=== PATIENT | male | born 1970 | race Caucasian/White ===

== ENCOUNTER 2017-08-14 11:41 | Emergency (ER) | payer OTHER, MEDICAID ==
[2017-08-14 11:50] VITALS: RESP 18; TEMP 98.1
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
[2017-08-14] MEDS ORDERED: ALTEPLASE 2 MG VIAL IVP PRN (13:12)
[2017-08-14 13:18] VITALS: BP 120/87; PULSE 89; O2SAT 95
[2017-08-14] MEDS ORDERED: VANCOMYCIN HCL/NORMAL SALINE 250 ML IV ONE (13:30)
[2017-08-14] MEDS ORDERED: ONDANSETRON DISINTEGRATING 4 MG TAB PO PRN (13:40)
[2017-08-14] MEDS ORDERED: ONDANSETRON 4 MG/2 ML VIAL IVP PRN (13:40)
[2017-08-14] MEDS ORDERED: ACETAMINOPHEN 325 MG TAB PO PRN (13:40)
--- NOTE | 2017-08-14 13:57 | ASMTCAGE ---
CAGE Additional Comments Patient is denying any recent drug use. He is opiate dependent on Methadone. pending "legal" blood draw Date Signed: 08/14/2017 01:57 PM Electronically Signed By:Yolanda Watkins RN
[2017-08-15] MEDS ORDERED: ENOXAPARIN 40 MG/0.4 ML SYR SC SCH (09:00)
== END 2017-08-14 14:55 | disposition left against medical advice (07) ==
LOC: EDUNIT# → UNDOADMOB 13:32
DX: L03.113 Cellulitis of right upper limb (principal); L03.114 Cellulitis of left upper limb; F11.90 Opioid use, unspecified, uncomplicated; J45.909 Unspecified asthma, uncomplicated; F17.200 Nicotine dependence, unspecified, uncomplicated
CPT/HCPCS: J1650; J3370

== ENCOUNTER 2018-02-28 02:49 | Emergency (ER) | payer MEDICAID ==
--- NOTE | 2018-02-28 03:28 | EDPHY ---
H & P Stated Complaint: skin parasites- Time Seen by Provider: 02/28/18 02:55 HPI/ROS: HPI The patient presents with concern for parasites on his skin which he has been dealing with for several months. He says that on his face and arms mostly he sees bugs and worms wiggling. He has been treated with permethrin with some improvement in his symptoms. He lately has been using Raid on his open wounds. He feels bugs crawling on him. He does not have any fevers or chills, nausea or vomiting. He has been seen in multiple emergency department for this. He has also gone to [facility] and tried to make appointments with Dermatology and Infectious Disease. He is asking for a biopsy of some sort to be performed for definitive diagnosis as he is convinced he is suffering from parasites and is diagnosed himself with leishmaniasis though he has no travel history. He does have a history of drug use and is currently on methadone. He takes Adderall daily though denies any methamphetamine use. He is not using any injection drugs currently he says. REVIEW OF SYSTEMS 10 systems were reviewed and negative with the exception of the elements mentioned in the history of present illness. PMHx: On methadone Soc Hx: Here with a friend who has not seen any parasites on his body PHYSICAL General Appearance: Alert, no distress Eyes: Pupils equal and round no pallor or injection ENT, Mouth: Mucous membranes moist Respiratory: There are no retractions, lungs are clear to auscultation Cardiovascular: Regular rate and rhythm Gastrointestinal: Abdomen is soft and non-tender, no masses, bowel sounds normal Neurological: A&O, moves all extremities Skin: Warm and dry, open wounds throughout his forearms most prominently, also involving his upper arms and face which are dry, excoriated, scabbed with no surrounding erythema, warmth, edema. Musculoskeletal: Neck is supple non tender Extremities: symmetrical, full range of motion Psychiatric: Patient is oriented X 3, there is no agitation Source: Patient Exam Limitations: No limitations - Personal History Current Tetanus Diphtheria and Acellular Pertussis (TDAP): Yes - Medical/Surgical History Hx Asthma: Yes Hx Chronic Respiratory Disease: No Hx Diabetes: No Hx Cardiac Disease: No Hx Renal Disease: No Hx Cirrhosis: Yes Hx Alcoholism: No Hx HIV/AIDS: No Hx Splenectomy or Spleen Trauma: No Other PMH: HEP C, PAST IV DRUG ABUSE, CLEAN SINCE 11/22/12 - Social History Smoking Status: Current every day smoker Constitutional: Initial Vital Signs Temperature (C) 37 C 02/28/18 02:55 Heart Rate 110 H 02/28/18 02:55 Respiratory Rate 20 02/28/18 02:55 Blood Pressure 154/81 H 02/28/18 02:55 O2 Sat (%) 95 02/28/18 02:55 O2 Delivery Mode Room Air Allergies/Adverse Reactions: No Known Allergies Allergy (Verified 02/28/18 02:58) Home Medications: Medication Instructions Recorded Dextroamphetamine/Amphetamine 20 mg PO DAILY 08/14/17 [Adderall Xr 20 mg Capsule] Methadone HCl 80 mg PO DAILY 08/14/17 clonazePAM [klonoPIN (*)] 1 mg PO BID PRN 08/14/17 Medical Decision Making Differential Diagnosis: 48-year-old male 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 I am not worried currently about bacterial superinfection though he certainly is at risk. He would like a referral to Dermatology and I will provide this for him. I have encouraged him to leave his skin alone, avoid picking, use antibiotic ointment as needed. Departure - Departure Disposition: Home, Routine, Self-Care Clinical Impression: Rash Condition: Good Instructions: Acute Rash (ED) Additional Instructions: I have given you information for our local dermatologists. You may need a referral from her primary care doctor. You should put nothing but water or antibiotic ointment on these wounds. You cannot pick them. Referrals: Roman Delarosa MD [Primary Care Provider] - As per Instructions Kalia Wilder MD [Medical Doctor] - As per Instructions Kia Ross MD [Medical Doctor] - As per Instructions TETO CALLEJAS [Medical Doctor] - As per Instructions
[2018-02-28 03:53] VITALS: BP 143/50
== END 2018-02-28 03:53 | disposition home or self-care (01) ==
DX: R21 Rash and other nonspecific skin eruption (principal); F11.90 Opioid use, unspecified, uncomplicated; F19.21 Other psychoactive substance dependence, in remission; F17.200 Nicotine dependence, unspecified, uncomplicated